=== PATIENT | female | born 1965 | race Caucasian/White ===

== ENCOUNTER 2021-11-01 11:58 | Emergency (ER) | payer OTHER ==
[~2021-11-01 11:58] MED LIST: CELEXA20 MG PO; DECADRON6 MG PO; FEOSOL325 MG PO; IBUPROFEN600 MG PO; NORCO 5-325 TA1 EACH PO; ZITHROMAX250 MG PO; ZOFRAN ODT 4 MG4 MG SL
[2021-11-01] MEDS ORDERED: ZANAFLEX 4 MG TA4 MG GT (16:21)
== END 2021-11-01 17:13 | disposition home or self-care (01) ==
LOC: ER1 11:58
DX: S13.4XXA Sprain of ligaments of cervical spine, initial encounter (principal); M25.522 Pain in left elbow; E11.9 Type 2 diabetes mellitus without complications; V43.52XA Car driver injured in collision with other type car in traffic accident, initial encounter; Y92.410 Unspecified street and highway as the place of occurrence of the external cause
CPT/HCPCS: 70450; 72125; 72128; 72131; 73070; 96372; 99284; J1885